=== PATIENT | female | born 1960 | race Asian ===

== ENCOUNTER 2019-10-05 16:52 | Emergency (ER) | payer MEDICAID ==
[~2019-10-05] VITALS: Ht 152.4 cm; Wt 61.2 kg
[2019-10-05 16:59] VITALS: BP 136/92
--- NOTE | 2019-10-05 17:05 | NUR ---
Patient ambulated to chair B.
--- NOTE | 2019-10-05 17:08 | NUR ---
Pt presents to ED for med refill benazepril 40mg PO daily and metoprolol 50mg PO daily. Stated she has not yet ran out of meds. Pt denies dizziness, lightheadedness, CP, SOB, n/v. Pt awake and alert, skin normal color warm and dry, rr even and unlabored. Hx HTN
--- NOTE | 2019-10-05 17:27 | NUR ---
Dr. Yoder is evaluating patient.
[2019-10-05 18:04] VITALS: BP 136/92
--- NOTE | 2019-10-05 18:04 | NUR ---
Patient discharged with v/s stable. Written and verbal after care instructions given and explained. Patient alert, oriented and verbalized understanding of instructions. Ambulatory with steady gait. All questions addressed prior to discharge. ID band removed. Patient advised to follow up with PMD. Rx of METOPROLOL, BENAZIPRIL given. Patient educated on indication of medication including possible reaction and side effects. Opportunity to ask questions provided and answered. PT D/C BY DR GARDNER.
== END 2019-10-05 17:35 | disposition home or self-care (01) ==
LOC: MED 16:52
DX: I10 Essential (primary) hypertension (principal); Z76.0 Encounter for issue of repeat prescription
CPT/HCPCS: 99281